=== PATIENT | male | born 1930 | race Two or more races ===

== ENCOUNTER 2020-12-17 02:17 | Inpatient (IN) | payer OTHER ==
[2020-12-17] VITALS (21 sets, daily range): BP systolic 132–225; BP diastolic 52–94
[~2020-12-17] VITALS: Ht 167.6 cm; Wt 74.3 kg
[2020-12-17 04:40] LABS: Basophils # (auto) 0 10 ^3/uL (0-0.2); Basophils % (auto) 0.2 % (0.0-2.0); Eosinophils # (auto) 0 10 ^3/uL (0-0.8); Eosinophils % (auto) 0.4 % (0.0-7.0); Hematocrit 38.9 % (41.0-53.0); Hemoglobin 13.4 g/dL (13.5-17.5); Lymphocytes % (auto) 11.1 % (10.0-50.0); Mean Corpuscular Hemoglobin 32.9 pg (28.0-32.0); Mean Corpuscular Hgb Conc. 34.5 g/dL (32.0-36.0); Mean Corpuscular Volume 95.4 fL (80.0-100.0); Monocytes # (auto) 0.7 10 ^3/uL (0-1.3); Neutrophils # (auto) 7.1 10 ^3/uL (1.6-8.6); Neutrophils % (auto) 80.3 % (37.0-80.0); Platelet Count (auto) 282 10^3/uL (140-450); Red Blood Cells 4.08 10^6/uL (4.5-5.90); Red Cell Distribution Width 14.1 % (11.8-14.3); White Blood Cell 8.8 10^3/uL (4.4-10.8)
[2020-12-17 05:00] LABS: Albumin 3.3 g/dL (3.4-5.0); Calcium 9.7 mg/dL (8.5-10.1); Potassium 3.6 mmol/L (3.5-5.1)
[2020-12-17 05:04] LABS: BUN/Creatinine Ratio 15.2; Bilirubin, Total 0.4 mg/dL (0.2-1.0); Total Protein 6.8 g/dL (6.4-8.2)
[2020-12-17] MEDS ORDERED: DEXTROSE (50%) 50ML SYRG IV ONE (05:15)
[2020-12-17] MEDS ORDERED: SODIUM CHLORIDE 0.9% 1,000 ML IV ONE (08:30)
[2020-12-17] MEDS ORDERED: SODIUM CHLORIDE 0.9% 500 ML IVB ONE (08:30)
[2020-12-17 08:59] LABS: Magnesium 1.8 mg/dL (1.6-2.6)
[2020-12-17 10:07] LABS: Urine Bacteria NONE SEEN /hpf (None Seen); Urine Blood Negative /uL (Negative); Urine Specific Gravity 1.015 (1.001-1.035); Urine WBC 1 /hpf (0 - 3)
[2020-12-17 10:32] LABS: Alcohol, Urine < 3.0 mg/dL (0-10); Amphetamine Screen, Urine NEGATIVE (NEGATIVE); Barbiturate Scree,Urine NEGATIVE (NEGATIVE); Benzodiazephine Screen, Urine NEGATIVE (NEGATIVE); Cannabinoid Screen, Urine NEGATIVE (NEGATIVE); Cocaine Screen, Urine NEGATIVE (NEGATIVE); Opiate Scree,Urine NEGATIVE (NEGATIVE); Phencyclidine Screen, Urine NEGATIVE (NEGATIVE)
[2020-12-17] MEDS ORDERED: OCTREOTIDE ACETATE 100 MCG in SODIUM CHL 0.9% 50 ML IV ONE (11:30)
[2020-12-17] MEDS ORDERED: ACETAMINOPHEN 500 MG TAB PO PRN (15:00)
[2020-12-17] MEDS ORDERED: ONDANSETRON HCL 4 MG/2 ML VIAL IV PRN (15:00)
[2020-12-17] MEDS ORDERED: MORPHINE SULF INJ 2 MG/ML SYRINGE 1ML IV PRN ×2 (15:00)
[2020-12-17] MEDS ORDERED: DEXTROSE 10% 1,000 ML IV SCH ×3 (15:00→22:30)
[2020-12-17] MEDS ORDERED: IPRATROPIUM BROM 0.5 MG/2.5ML INH SOL NEB PRN (15:00)
[2020-12-17] MEDS ORDERED: HYDROcodone-ACET 5/325MG TAB PO PRN (15:00)
[2020-12-17] MEDS ORDERED: NITROGLYCERIN 0.4 MG SL TAB SL PRN (15:00)
[2020-12-17] MEDS ORDERED: ALBUTEROL SULF 2.5 MG/0.5ML(0.5%) NEB SOLN NEB PRN (15:00)
[2020-12-17] MEDS ORDERED: DOCUSATE SOD 100 MG CAP PO PRN (15:00)
[2020-12-17] MEDS ORDERED: ASPirin 81 mg TAB PO ONE (15:20)
[2020-12-17] MEDS: ACCU-CHEK COMFORT CURVE STRIP VI SCH ×4 (16:36→22:14)
[2020-12-17] MEDS ORDERED: LABETALOL HCL 5 MG/ML 4ML SYRINGE IV PRN (16:45)
[2020-12-17] MEDS ORDERED: amLODIPine BESYLATE 5 MG TAB PO ONE (16:45)
[2020-12-17] MEDS ORDERED: HALOPERIDOL LACTATE 5 MG/ML INJ VIAL ONE (19:51)
[2020-12-17] MEDS ORDERED: HALOPERIDOL LACTATE 5 MG/ML INJ VIAL IM ONE (20:00)
[2020-12-17] MEDS: METOPROLOL TARTRATE 25 MG TAB PO SCH (21:22)
[2020-12-18] VITALS (54 sets, daily range): BP systolic 103–158; BP diastolic 47–79
[2020-12-18] MEDS: ACCU-CHEK COMFORT CURVE STRIP VI SCH ×2 (00:20→06:34)
[2020-12-18] MEDS: LORazepam 2MG/ML-1ML VIAL IV PRN ×4 (00:40→17:45)
[2020-12-18] MEDS ORDERED: LORazepam 2MG/ML-1ML VIAL ONE (00:40)
[2020-12-18] MEDS: HALOPERIDOL LACTATE 5 MG/ML INJ VIAL IM PRN ×2 (02:00→10:21)
[2020-12-18] MEDS ORDERED: ALLO100T PO (07:00)
[2020-12-18] MEDS ORDERED: GABA300C10 PO (07:01)
[2020-12-18] MEDS ORDERED: FENO54TA4 PO (07:04)
[2020-12-18] MEDS: amLODIPine BESYLATE 5 MG TAB PO SCH ×2 (08:54→10:21)
[2020-12-18] MEDS: METOPROLOL TARTRATE 25 MG TAB PO SCH ×2 (08:54→10:26)
[2020-12-18] MEDS ORDERED: ASPirin 81 mg TAB PO SCH (10:00)
[2020-12-18] MEDS ORDERED: FAMOTIDINE 20 MG TAB PO SCH (10:00)
[2020-12-18] MEDS ORDERED: ACCU-CHEK COMFORT CURVE STRIP VI SCH ×2 (12:00→18:00)
[2020-12-18] MEDS ORDERED: ERGO1CAP23 PO (12:11)
[2020-12-18] MEDS ORDERED: ASPI-543 PO (12:11)
[2020-12-18] MEDS ORDERED: ATOR-47 PO (12:11)
[2020-12-18] MEDS ORDERED: DONE1TAB88 PO (12:11)
[2020-12-18] MEDS ORDERED: METF-370 PO (12:11)
[2020-12-18] MEDS ORDERED: DEXTROSE (50%) 50ML SYRG IV PRN (12:30)
[2020-12-18] MEDS ORDERED: InsuLIN REG 1unit/0.01ml Soln (100units/ml) SC SCH (18:00)
[2020-12-18] MEDS ORDERED: AML5T PO (19:15)
[2020-12-18] MEDS ORDERED: MET25T PO (19:15)
== END 2020-12-19 00:07 | disposition hospice, home (50) | DRG 637 ==
LOC: EDBD 02:17 → ER 02:17 → TELE 15:01 → DOU IN ICU 17:50
PROVIDERS: ADMIT Nurse Practitioner Acute Care; ATTEND Nurse Practitioner Acute Care
DX: E11.649 Type 2 diabetes mellitus with hypoglycemia without coma (principal); G93.41 Metabolic encephalopathy; E44.0 Moderate protein-calorie malnutrition; Z68.1 Body mass index [BMI] 19.9 or less, adult; E78.5 Hyperlipidemia, unspecified; Z74.01 Bed confinement status; I10 Essential (primary) hypertension; M10.9 Gout, unspecified; F03.90 Unspecified dementia, unspecified severity, without behavioral disturbance, psychotic disturbance, mood disturbance, and anxiety; Z20.822 Contact with and (suspected) exposure to COVID-19
CPT/HCPCS: 36415; 71045; 80053; 80307; 81001; 82962; 83036; 83735; 83880; 84484; 85025; 87081; 87426; 93005; 93306; 96365; 96375; G0378; J2405; J3490